=== PATIENT | female | born 2000 | race Caucasian/White ===

== ENCOUNTER 2022-01-09 07:36 | Emergency (ER) | payer OTHER ==
[2022-01-09 08:21] VITALS: BP 125/73; PULSE 94; TEMP 97.6; BMI 21.5
[2022-01-09 08:52] LABS: URINE APPEARANCE CLEAR; URINE BILIRUBIN NEGATIVE (NEGATIVE); URINE COLOR YELLOW; URINE GLUCOSE (UA) NEGATIVE (NEGATIVE); URINE KETONE NEGATIVE (NEGATIVE)
[2022-01-09 08:53] LABS: PH,URINE 7.5 (5.0-8.0); URINE LEUK ESTERASE TRACE (NEGATIVE); URINE NITRITE NEGATIVE (NEGATIVE); URINE PROTEIN NEGATIVE (NEGATIVE); URINE UROBILINOGEN 0.2 mg/dL (0.2-1.0)
[2022-01-09 08:54] LABS: EPI CELLS 36.2 /uL (0-25.1); HYALINE CASTS 0.51 /uL (0-3.1); URINE BACTERIA 200.8 /uL (0-1359); URINE WBC 19.2 /uL (0-25.8)
[2022-01-11 11:08] LABS: SARS-CoV-2 NAA Not Detected (Not Detected)
== END 2022-01-09 09:18 | disposition home or self-care (01) ==
LOC: JER 07:36
DX: O21.0 Mild hyperemesis gravidarum (principal); Z3A.20 20 weeks gestation of pregnancy
CPT/HCPCS: 81003; 87086; 99283-25; C9803-CS; U0003; U0005

== ENCOUNTER 2022-05-04 15:38 | Inpatient (IN) | payer OTHER ==
[2022-05-04] MEDS ORDERED: AMPICILLIN SODIUM 2 GM VIAL ONE (16:44)
[2022-05-04] MEDS ORDERED: AMPICILLIN - 2 GM in SODIUM CHLORIDE 100 ML IVPB ONE (17:00)
[2022-05-04] MEDS ORDERED: ceFAZolin 2 GRAM PREMIX BAG IVPB ONE (17:18)
[2022-05-04] MEDS ORDERED: CITRIC ACID/SODIUM CITRATE 30 ML UNIT-DOSE CUP PO ONE (17:21)
[2022-05-04 17:26] VITALS: BMI 23.0
[2022-05-04 17:26] LABS: BASO % 0.5 % (0-2.0); EOS % 0.1 % (0-4.5); HEMATOCRIT 36.2 % (32.4-45.2); HEMOGLOBIN 12.1 GM/dL (10.7-15.3); LYMPH % 16.3 % (8-40); MCH 27.8 pg (25.7-33.7); MCHC 33.2 g/dl (32.0-36.0); MEAN CELL VOLUME 83.7 fl (80-96); MEAN PLT VOLUME 9.7 fl (7.5-11.1); MONO % 8.3 % (3.8-10.2); NEUT % 74.8 % (42.8-82.8); PLATELET COUNT 228 10^3/uL (134-434); RBC 4.33 M/mm3 (3.60-5.2); RDW 16.4 % (11.6-15.6); WHITE BLOOD COUNT 11.9 K/mm3 (4.0-10.0)
[2022-05-04] MEDS ORDERED: ELECTROLYTE-148 SOLN 1,000 ML IV SCH ×2 (17:30→19:00)
[2022-05-04] MEDS ORDERED: morphine SULFATE/PF 1 MG/2 ML (2cc Syringe - QUVA) ONE (17:33)
[2022-05-04 17:36] LABS: ACTIVATED PTT 24.6 SECONDS (25.2-36.5); INR 0.91 (0.83-1.09); PROTHROMBIN TIME (PATIENT) 10.5 SEC (9.7-13.0)
[2022-05-04 17:51] LABS: ALBUMIN 2.8 g/dl (3.4-5.0); BLOOD UREA NITROGEN 9.6 mg/dL (7-18); CALCIUM 8.8 mg/dL (8.5-10.1)
[2022-05-04 17:54] LABS: CREATININE 0.6 mg/dL (0.55-1.3)
[2022-05-04 17:56] LABS: BILIRUBIN,TOTAL 0.4 mg/dL (0.2-1); TOT PROT 6.7 g/dl (6.4-8.2)
[2022-05-04] MEDS ORDERED: AZITHROMYCIN IVPB 500 MG/250 ML BAG IVPB ONE (18:45)
[2022-05-04] MEDS ORDERED: METHYLERGONOVINE MALEATE 0.2 MG/1 ML AMP IM PRN (18:55)
[2022-05-04] MEDS ORDERED: ACETAMINOPHEN 325 MG TABLET (FP) PO PRN (18:55)
[2022-05-04] MEDS ORDERED: IBUPROFEN 800 MG/8 ML IJ IVPB PRN (18:55)
[2022-05-04] MEDS ORDERED: OXYTOCIN 10 UNITS/ML VIAL ONE (19:00)
[2022-05-04] MEDS ORDERED: ONDANSETRON 4 MG/2 ML VIAL ONE (19:00)
[2022-05-04] MEDS ORDERED: KETOROLAC TROMETHAMINE 30 MG/1 ML VIAL ONE (19:00)
[2022-05-04] MEDS ORDERED: ceFAZolin SODIUM 1 GM VIAL ONE (19:00)
[2022-05-04] MEDS ORDERED: OXYTOCIN 20 UNITS in 0.9% NS 20 UNIT/1,000 ML INFUS.BAG IV SCH (19:00)
[2022-05-04] MEDS ORDERED: morphine SULFATE/PF 1 MG/2 ML (2cc Syringe - QUVA) EP ONE (19:11)
[2022-05-04] MEDS ORDERED: ACETAMINOPHEN 1000 MG/100 ML BAG IVPB ONE (19:12)
[2022-05-04] MEDS ORDERED: PROMETHAZINE HCL 25 MG/1 ML VIAL IVPUSH PRN (19:13)
[2022-05-04 19:16] LABS: CORD BASE EXCESS -2.9 mmol/L (0-2); CORD HCO3 23.7 mmHg (20-29); CORD PCO2 47.8 mmHg (30-78); CORD pH 7.313 (7.14-7.44)
[2022-05-04 19:17] LABS: CORD BASE EXCESS -2.7 mmol/L (0-2); CORD HCO3 24.1 mmHg (20-29); CORD PCO2 49.1 mmHg (30-78); CORD pH 7.308 (7.14-7.44)
[2022-05-04] MEDS ORDERED: OXYTOCIN 20 UNITS in 0.9% NS 20 UNIT/1,000 ML INFUS.BAG IV ONE (19:30)
[2022-05-04 21:28] LABS: HEPATITIS B SURFACE AG MATERN NON-REACTIVE (NONREACTIVE); SYPHILIS W/ RPR CONF NON-REACTIVE (NONREACTIVE)
[2022-05-04 22:03] LABS: HIV INTERPRETATION NEGATIVE (NEGATIVE)
[2022-05-04] MEDS: FERROUS SO4 325 MG TABLET (FP) PO SCH (23:28)
[2022-05-05] MEDS: SIMETHICONE 80 MG TAB.CHEW (FP) PO PRN ×2 (04:37→19:29)
[2022-05-05 09:09] LABS: BASO % 0.1 % (0-2.0); EOS % 0.1 % (0-4.5); HEMATOCRIT 30.4 % (32.4-45.2); HEMOGLOBIN 9.9 GM/dL (10.7-15.3); LYMPH % 11.4 % (8-40); MCH 27.9 pg (25.7-33.7); MCHC 32.7 g/dl (32.0-36.0); MEAN CELL VOLUME 85.1 fl (80-96); MEAN PLT VOLUME 9.3 fl (7.5-11.1); MONO % 6.7 % (3.8-10.2); NEUT % 81.7 % (42.8-82.8); PLATELET COUNT 170 10^3/uL (134-434); RBC 3.57 M/mm3 (3.60-5.2); RDW 16.4 % (11.6-15.6); WHITE BLOOD COUNT 11.8 K/mm3 (4.0-10.0)
[2022-05-05] MEDS: FERROUS SO4 325 MG TABLET (FP) PO SCH ×2 (10:27→23:35)
[2022-05-05] MEDS: PRENATAL VITAMINS W/ FOLIC ACID TABLET (FP) PO SCH (10:27)
[2022-05-05 10:40] LABS: POC NITRAZINE POS
[2022-05-05] MEDS: IBUPROFEN 600 MG TABLET (FP) PO PRN ×2 (12:57→19:29)
[2022-05-05] MEDS ORDERED: BISACODYL 10 MG SUPP.RECT RC PRN (18:55)
[2022-05-06] MEDS: SIMETHICONE 80 MG TAB.CHEW (FP) PO PRN ×2 (00:28→08:17)
[2022-05-06] MEDS: IBUPROFEN 600 MG TABLET (FP) PO PRN ×3 (00:28→16:04)
[2022-05-06] MEDS ORDERED: oxyCODONE HCL 5 MG TABLET PO PRN ×2 (06:55)
[2022-05-06] MEDS: FERROUS SO4 325 MG TABLET (FP) PO SCH ×2 (09:05→22:01)
[2022-05-06] MEDS: PRENATAL VITAMINS W/ FOLIC ACID TABLET (FP) PO SCH (09:05)
[2022-05-06 22:39] VITALS: PULSE 76; RESP 18
[2022-05-07] MEDS: IBUPROFEN 600 MG TABLET (FP) PO PRN ×2 (03:39→10:13)
[2022-05-07] MEDS: SIMETHICONE 80 MG TAB.CHEW (FP) PO PRN (03:40)
[2022-05-07 08:39] LABS: BASO % 0.1 % (0-2.0); EOS % 1.1 % (0-4.5); HEMATOCRIT 33.8 % (32.4-45.2); HEMOGLOBIN 11.2 GM/dL (10.7-15.3); LYMPH % 27.5 % (8-40); MCH 28.1 pg (25.7-33.7); MEAN CELL VOLUME 85.2 fl (80-96); MEAN PLT VOLUME 9.1 fl (7.5-11.1); MONO % 6.1 % (3.8-10.2); NEUT % 65.2 % (42.8-82.8); PLATELET COUNT 231 10^3/uL (134-434); RBC 3.97 M/mm3 (3.60-5.2); RDW 17.1 % (11.6-15.6); WHITE BLOOD COUNT 8.4 K/mm3 (4.0-10.0)
[2022-05-07] MEDS: PRENATAL VITAMINS W/ FOLIC ACID TABLET (FP) PO SCH (10:13)
[2022-05-07] MEDS: FERROUS SO4 325 MG TABLET (FP) PO SCH (10:13)
[2022-05-07 10:24] VITALS: BP 115/75; TEMP 98
== END 2022-05-07 13:30 | disposition home or self-care (01) | DRG 540 ==
LOC: JDEL 15:38 → JLDR 16:30 → J3W 20:10
PROVIDERS: ADMIT Obstetrics & Gynecology; ATTEND Obstetrics & Gynecology
PROC: 10D00Z1 Extraction of Products of Conception, Low, Open Approach (ICD-10-PCS; principal; 2022-05-04)
DX: O32.1XX0 Maternal care for breech presentation, not applicable or unspecified (principal); Z3A.37 37 weeks gestation of pregnancy; Z37.0 Single live birth
CPT/HCPCS: 36415; 36600; 80053; 82803; 83986-QW; 85025; 85610; 85730; 86780; 86850; 86900; 86901; 87340; 87389; 88307-TC; C9803-CS; U0003; U0005